=== PATIENT | male | born 1960 | race African-American/Black ===

== ENCOUNTER → 2016-12-21 | Outpatient (REF) ==
[~2016-12-21] MED LIST: ASPIRIN 81M81 MG/TA2; CELEBREX 200MG200 MG PO; CEPHALEXIN500 M1 PO; COUMADIN 6MG6 MG/TAB PO; FERROUS SU325 MG/TAB PO; FOLIC ACID 40400 MCG PO; LIPITOR20 MG PO; NORVASC 10MG10 MG PO; ROXICODONE 55 MG/TAB PO; VITAMIN C PURE500 MG PO; XARELTO10 MG PO; ZESTRIL30 MG PO
== END ==
LOC: WSOH 12:54
DX: Z01.00 Encounter for examination of eyes and vision without abnormal findings (principal)

== ENCOUNTER → 2017-05-26 | Outpatient (REF) | LOC: WSOH 12:49 | DX: Z02.89 Encounter for other administrative examinations (principal) | CPT/HCPCS: G0463 ==